=== PATIENT | female | born 1985 | race Caucasian/White ===

== ENCOUNTER 2016-08-26 09:47 | Emergency (ER) | payer OTHER ==
[~2016-08-26] VITALS: Ht 160 cm; Wt 78.0 kg
[2016-08-26 09:51] VITALS: Ht 160 cm; Wt 78.0 kg
--- NOTE | 2016-08-26 10:53 | ERD ---
ER Documentation Chief Complaint Date/Time DATE: 08/26/16 TIME: 10:49 Chief Complaint AP X MOS INTERMITTENT. TODAY WORSEN HPI This a 30 y/o female that presents to the ER with a 6 month hx of intermittent pelvic pain. Patient pelvic pain is throbbing in quality. Patient is currently sexually active and has unprotected sexual intercourse with one partner. Patient has been getting frequent yeast infections and has gone to the doctor. This is only vaginal discharge she experienced. She denies any urinary frequency or dysuria. She denies any nausea vomiting or diarrhea. He does experience mild discomfort with sexual intercourse. Patient also states that she has had intermittent sores that are painful and itching in her vagina. She feels as if her vaginal lips are chapped. Patient denies any fevers or chills. ROS 12 point review of systems was done, all negative except per HPI. Medications Home Meds Active Scripts Clotrimazole* (Clotrimazole* AF) 1% - 30 Gm Cream.gm., 1 APPLIC TOP BID for 7 Days, TUB Prov:EPIFANIO CONTRERAS 08/26/16 Naproxen* (Naprosyn*) 500 Mg Tablet, 500 MG PO BID Y for PAIN AND/OR INFLAMMATION, #30 TAB Prov:DIANEEPIFANIO C 08/26/16 Allergies Allergies: Coded Allergies: No Known Allergy (Unverified , 08/26/16) PMhx/Soc History of Surgery: Yes (APPENDECTOMY) Anesthesia Reaction: No Hx Neurological Disorder: No Hx Respiratory Disorders: No Hx Cardiac Disorders: No Hx Psychiatric Problems: No Hx Miscellaneous Medical Probl: No Hx Alcohol Use: Yes Hx Substance Use: No Hx Tobacco Use: No Smoking Status: Never smoker Physical Exam Vitals Vital Signs Date Time Temp Pulse Resp B/P Pulse Ox O2 Delivery O2 Flow Rate FiO2 08/26/16 09:51 98.1 83 18 140/91 99 Physical Exam GENERAL: The patient is well developed and appropriate for usual state of health , in no apparent distress. HEENT: Atraumatic. CHEST: Clear to auscultation bilaterally. There are no rales, wheezes or rhonchi. HEART: Regular rate and rhythm. No murmurs, clicks, rubs or gallops. ABDOMEN: Soft, nontender and nondistended. Good bowel sounds. No rebound or guarding. No gross peritonitis. No gross organomegaly or masses. No Schulz sign or McBurney point tenderness. mild pelvic pain upon palpation BACK: No midline or flank tenderness. : external genitalia is normal with no lesions, sores or masses. There is no vaginal discharge. no cervical motion tenderness. ovaries not felt. NEURO: Alert and oriented. SKIN: The skin is warm and dry. Results 24 hrs Laboratory Tests Test 08/26/16 10:30 Urine Color LT. YELLOW Urine Clarity CLEAR Urine pH 7.0 Urine Specific [place]more 1.010 Urine Ketones NEGATIVE Urine Nitrite NEGATIVE Urine Bilirubin NEGATIVE Urine Urobilinogen 0.2 E.U./dL Urine Leukocyte Esterase NEGATIVE Urine Hemoglobin NEGATIVE Urine Glucose NEGATIVE% Urine Total Protein NEGATIVE Procedures/MDM Differential diagnosis includes but is not limited to; vaginitis, yeast infection, STI, bacterial vaginosis, UTI, ovarian torsion, ovarian cyst, endometriosis, neoplasm. This is a 30-year-old female presents to the ER with a 6 month history of pelvic pain. At this time there is no evidence of ovarian torsion. Patient is afebrile and well-appearing. I do not believe patient has a tubo-ovarian abscess. Was tested for STDs, and will be called if any of these are positive. Patient mentioned having sores however I do not appreciate them on physical exam, at this time I am not able to rule out herpes or genital warts. I advised patient to follow-up with her [facility] or family practice practitioner to get a full screening for STDs including a tzanck smear. Patient will be sent home with naproxen and with clotrimazole, possible vaginitis secondary to yeast infection. Patient does complain of vaginal itchiness and she has had fungal infections. Patient needs to return to ER sooner if symptoms worsen. My medical decision making was shared with the patient she understands and agrees with plan. Departure Diagnosis: Primary Impression: Pelvic pain Condition: Stable EPIFANIO CONTRERAS Aug 26, 2016 10:53
[2016-08-26 10:58] LABS: ADD UMIC NO; UR BILIRUBIN (Dip) NEGATIVE (NEGATIVE); UR BLOOD (Dip) NEGATIVE (NEGATIVE); UR CLARITY CLEAR (CLEAR); UR COLOR LT. YELLOW (YELLOW); UR GLUCOSE (Dip) NEGATIVE (NEGATIVE); UR KETONES (Dip) NEGATIVE (NEGATIVE); UR LEUKOCYTE ESTERASE (Dip) NEGATIVE (NEGATIVE); UR NITRITE (Dip) NEGATIVE (NEGATIVE); UR TOTAL PROTEIN (Dip) NEGATIVE (NEGATIVE); UR UROBILINOGEN (Dip) 0.2 E.U./dL (0.1-1.0)
--- NOTE | 2016-08-26 11:01 | RADRPT ---
PROCEDURE: US Pelvis. CLINICAL INDICATION: Pelvic pain. TECHNIQUE: Multiple sonographic images of the pelvis were obtained utilizing a transabdominal and endovaginal technique. The images were reviewed on a PACS workstation. COMPARISON: None available. FINDINGS: The uterus is visualized and measures 7.1 x 3.3 x 4.0 cm. The endometrial echo complex is normal and measures 7.5 mm. There is no evidence for free fluid. The right ovary has a normal echotexture and measures 4.1 x 2.4 x 2.5 cm. The left ovary has a normal echotexture and measures 4.1 x 2.5 x 2.5 c m. There is Doppler flow seen to both ovaries. No adnexal masses are noted. IMPRESSION: 1. Unremarkable pelvic ultrasound. RPTAT: [facility] Physician Olivia Date Time Electronically viewed and signed by Physician Olivia on 08/26/2016 11:00 /
[2016-08-26] MEDS ORDERED: NAPR-260 PO (11:04)
[2016-08-26] MEDS ORDERED: CLOT30CR24 TOP (11:10)
== END 2016-08-26 11:40 | disposition home or self-care (01) ==
LOC: FTE 09:47
DX: R10.2 Pelvic and perineal pain (principal)
CPT/HCPCS: 76830; 76856; 81003; 87591